=== PATIENT | female | born 1990 | race Caucasian/White ===

== ENCOUNTER → 2016-10-30 | Outpatient (CLI) | payer OTHER ==
[~2016-10-30] MED LIST: PRENTAB26 PO
== END | disposition home or self-care (01) ==
LOC: C.PATHSPEC 17:09
PROVIDERS: ATTEND Plastic Surgery
DX: D23.5 Other benign neoplasm of skin of trunk (principal)

== ENCOUNTER → 2017-02-09 | Outpatient (CLI) | payer OTHER, BC ==
[2017-02-09 13:32] LABS: HEMATOCRIT 36.1 % (37-47)
[2017-02-09 13:50] LABS: GTGD 50 Grams
[2017-02-09 13:59] LABS: URINE APPEARANCE CLEAR (CLEAR); URINE BILIRUBIN NEG (NEG); URINE COLOR YELLOW; URINE NITRITE NEG (NEG); URINE PH 6.5 (4.5-7.5); URINE SPECIFIC GRAVITY 1.008 (1.000-1.030); UROBILINOGEN NEG (NEG)
[2017-02-09 14:06] LABS: MANUAL MICROSCOPIC REQUIRED? NO; REVIEW REQ? NO
== END | disposition home or self-care (01) ==
LOC: C.LABPBG 08:12
PROVIDERS: ATTEND Obstetrics & Gynecology
DX: O09.03 Supervision of pregnancy with history of infertility, third trimester (principal)

== ENCOUNTER → 2017-02-18 | Outpatient (CLI) | payer OTHER, BC ==
[2017-02-18 13:06] LABS: ALT/SGPT 24 U/L (12-78); BLOOD UREA NITROGEN 10 mg/dl (7-18); BUN/CREATININE RATIO 16.4 (10-20); CARBON DIOXIDE 26 mmol/L (21-32); CHLORIDE 106 mmol/L (98-107); CHOLESTEROL 142 mg/dl (0-200); CREATININE 0.61 mg/dl (0.60-1.20); GLUCOSE,FASTING 68 mg/dl (70-99); POTASSIUM 3.7 mmol/L (3.5-5.1); SODIUM 139 mmol/L (136-145); TRIGLYCERIDES 106 mg/dl (0-150); VERY LOW DENSITY LIPOPROT CALC 21 mg/dl
[2017-02-18 13:09] LABS: ALB/GLOB RATIO 0.9 (0.9-2); ALKALINE PHOSPHATASE 92 U/L (45-117); AST/SGOT 20 U/L (15-37); HDL CHOLESTEROL 47 mg/dl; LDL CHOLESTEROL CALCULATED 74 mg/dl
[2017-02-18 13:10] LABS: CALCIUM 8.9 mg/dl (8.5-10.1)
== END | disposition home or self-care (01) ==
LOC: C.LABPBG 07:55
PROVIDERS: ATTEND Physician Assistant
DX: Z00.00 Encounter for general adult medical examination without abnormal findings (principal)

== ENCOUNTER → 2017-04-08 | Outpatient (CLI) | payer OTHER, BC | END | disposition home or self-care (01) | LOC: C.LABSPEC 17:40 | PROVIDERS: ATTEND Obstetrics & Gynecology | DX: O09.03 Supervision of pregnancy with history of infertility, third trimester (principal); Z3A.00 Weeks of gestation of pregnancy not specified ==

== ENCOUNTER 2017-05-07 22:46 | Inpatient (IN) | payer BC, OTHER ==
[~2017-05-07] VITALS: Ht 170.2 cm; Wt 83.9 kg
[2017-05-07] MEDS ORDERED: LACTATED RINGER'S 1000ML 1,000 ML IV PRN (23:05)
[2017-05-07 23:26] LABS: HEMATOCRIT 36.2 % (37-47); MEAN CELL VOLUME 92.1 fL (80-100); MEAN CORPUSCULAR HEMOGLOBIN 32.8 pg (25-34); MEAN CORPUSCULAR HGB CONC 35.6 g/dl (32-36); MEAN PLATELET VOLUME 10.8 fL (7.4-10.4); PLATELET COUNT 163 K/uL (130-400); RED BLOOD COUNT 3.93 M/uL (4.2-5.4); WHITE BLOOD COUNT 14.98 K/uL (4.8-10.8)
[2017-05-07] MEDS ORDERED: PRENTAB26 PO (23:50)
[2017-05-07 23:51] VITALS: Ht 170.2 cm; Wt 83.9 kg
[2017-05-08] MEDS ORDERED: BUPIVACAINE 0.25% 30 ML VIAL ONE (00:23)
[2017-05-08] MEDS ORDERED: FENTANYL 2MCG/ML ROPIV 1.25MG/ML 100ML BAG EPI ONE (00:23)
[2017-05-08] MEDS ORDERED: EpHEDrine SULFATE INJ 50 MG/ML AMP ONE (00:23)
[2017-05-08] MEDS ORDERED: FENTANYL CITRATE INJ 50 MCG/1 ML 2 ML VIAL ONE (00:24)
[2017-05-08] MEDS: LACTATED RINGER'S 1000ML 1,000 ML IV SCH ×4 (00:36→19:05)
[2017-05-08] MEDS ORDERED: NALOXONE HCL INJ 1 MG in SODIUM CHLORIDE 0.9% 1000ML 1,000 ML IV PRN (01:22)
[2017-05-08] MEDS ORDERED: LACTATED RINGER'S 1000ML 500 ML IV PRN ×2 (01:22→10:41)
[2017-05-08] MEDS ORDERED: NALBUPHINE HCL INJ 10 MG/ML AMP IV PRN (01:30)
[2017-05-08] MEDS ORDERED: NALOXONE HCL INJ 0.4 MG/1 ML VIAL/CARP IV PRN (01:30)
[2017-05-08] MEDS ORDERED: PROMETHAZINE HCL INJ 6.25 MG in SODIUM CHLORIDE 0.9% 50ML 50 ML IV PRN (01:30)
[2017-05-08] MEDS ORDERED: ONDANSETRON INJ 2 MG/ML 2 ML VIAL IV PRN (01:30)
[2017-05-08] MEDS ORDERED: DiphenhydrAMINE HCL 50 MG/ML VIAL IV PRN (01:30)
[2017-05-08] MEDS ORDERED: EpHEDrine SULFATE INJ 50 MG/ML AMP IV PRN (01:30)
[2017-05-08] MEDS: FENTANYL 2MCG/ML ROPIV 1.25MG/ML 100ML BAG EPI PRN ×4 (06:50→16:06)
[2017-05-08] MEDS ORDERED: OXYTOCIN 30 UNITS/500ML NSS IV PRN ×2 (10:45→20:00)
[2017-05-08] MEDS ORDERED: LACTATED RINGER'S 1000ML 1,000 ML IV SCH (19:51)
[2017-05-08] MEDS ORDERED: BENZOCAINE 20% AER SPR 82.5 GM CAN EXT PRN (20:00)
[2017-05-08] MEDS ORDERED: SUPERCREAM 0.870 % 15GM JAR EXT PRN (20:00)
[2017-05-08] MEDS ORDERED: DIPHTHERIA/TETANUS/PERTUSSIS 0.5 ML SYR/VIAL IM. ONE (20:00)
[2017-05-08] MEDS ORDERED: LANOLIN OINT EXT PRN ×2 (20:00)
[2017-05-08] MEDS ORDERED: HYDROCORTISONE ACETATE 25 MG SUPP PR PRN (20:00)
[2017-05-08] MEDS ORDERED: ACETAMINOPHEN 325 MG TAB PO PRN (20:00)
[2017-05-08] MEDS ORDERED: OXYCODONE/ACETAMINOPHEN 5-325 TAB PO PRN (20:00)
--- NOTE | 2017-05-08 21:18 | Anesthesia Procedure Note ---
Anesthesia Epidural Removal Nt Date & Time May 08, 2017 at 21:18 Vital Signs Pain Intensity: 0.0 Notes Mental Status: alert / awake / arousable, participated in evaluation Nausea / Vomiting: adequately controlled Pain: adequately controlled Airway Patency, RR, SpO2: stable & adequate BP & HR: stable & adequate Hydration State: stable & adequate Neuraxial Anesthesia: was administered Anesthetic Complications: no major complications apparent, pt satisfied with anesthetic care Epidural: removed without complications, with tip intact
[2017-05-08] MEDS: IBUPROFEN 600 MG TAB PO PRN (21:47)
[2017-05-08 23:15] VITALS: BP 126/71; PULSE 68; TEMP 36.7; O2SAT 97
[2017-05-09 03:55] VITALS: BP 119/73; PULSE 76; TEMP 36.5; O2SAT 97
[2017-05-09] MEDS: IBUPROFEN 600 MG TAB PO PRN ×4 (07:31→21:39)
[2017-05-09 07:35] VITALS: BP 136/75; PULSE 69; TEMP 36.4; O2SAT 97
[2017-05-09 07:53] LABS: HEMATOCRIT 32.8 % (37-47)
--- NOTE | 2017-05-09 08:50 | DELIVERY SUMMARY ---
DATE OF OPERATION: 05/08/2017 VAGINAL DELIVERY NOTE PREOPERATIVE DIAGNOSES: 1. Duarte intrauterine at 40 weeks and 02/14. 2. Spontaneous onset of labor. 3. Group B strep negative. POSTOPERATIVE DIAGNOSES: Same. PROCEDURE: Spontaneous vaginal delivery. SURGEON: Dr. Caty Hook. DEPUTY COURT CLERK: None. ESTIMATED BLOOD LOSS: 500 mL. COMPLICATIONS: None. DISPOSITION: Stable in labor and delivery. DESCRIPTION: [place] is a , who was admitted by my partner, Dr. Mckeon in active labor. She was 5 cm at the time I assumed her care on the morning of May 08. She was not making good change at that point and therefore augmented with Pitocin throughout the day. She ultimately did reach complete dilation with energy to push and was ____ second stage of labor. I was called for delivery and prepped and gowned. The patient was then ____ additional pushes to bring the head to and ultimately to delivery. There was no difficulty with delivery of the shoulders and remainder of the infant followed quickly. The infant was placed on the maternal abdomen, where the cord was doubly clamped and cut by the father of the baby. Of note, significant meconium staining was noted and the was taken to the warmer for suction. However, the was vigorous immediately upon delivery. The placenta was delivered spontaneously. It was noted to be intact with a 3-vessel cord. The cervix, vagina, and perineum were carefully examined and there were on lacerations requiring repair. The patient fundus was immediately firm after delivery; however, approximately 5 minutes later, good gush of red bleeding was noted. Bimanual massage was performed, which did slow the bleeding significantly and the patient's Pitocin rate was increased to ____. The fundus is now firm, lochia is minimal and the mother and are in stable condition having tolerated delivery well. I attest to the content of the Intraoperative Record and any orders documented therein. Any exception s are noted below.
[2017-05-09] MEDS: DOCUSATE SODIUM 100 MG CAP PO SCH ×2 (08:53→20:04)
[2017-05-09] MEDS: PRENATAL VITAMIN TAB PO SCH (08:53)
--- NOTE | 2017-05-09 09:35 | Progress Note ---
Subjective May 09, 2017. Subjective conversation w/ patient, physical exam Ambulation: ambulating normally Voiding: no voiding problems Passing Gas: Yes Diet Tolerance: Regular Diet Lochia: Moderate Feeding Type: Breast Feeding Review of Systems Constitutional: No fever Respiratory: No cough Cardiac: No chest pain Abdomen: No nausea, No vomiting Objective Vital Signs Date Time Temp Pulse Resp B/P (MAP) Pulse Ox O2 Delivery O2 Flow Rate FiO2 05/09/17 07:35 97 Room Air 05/09/17 07:35 36.4 69 18 136/75 (95) 97 Room Air 05/09/17 03:55 36.5 76 20 119/73 (88) 97 Room Air 05/08/17 23:15 36.7 68 20 126/71 (89) 97 Room Air 05/08/17 23:15 97 Room Air Physical Exam General Appearance: WELL-APPEARING, NO APPARENT DISTRESS Respiratory/Chest: no respiratory distress, no accessory muscle use Cardiovascular: no edema Abdomen: non tender, soft Fundus: Firm Extremities: no pedal edema, no calf tenderness Laboratory Results Last 24 Hours Test 05/09/17 07:23 Hemoglobin 11.2 g/dL Hematocrit 32.8 % Assessment and Plan Post- Day#: 1
[2017-05-09 12:20] VITALS: BP 137/80; PULSE 81; TEMP 36.5; O2SAT 97
[2017-05-09 16:50] VITALS: BP 124/78; PULSE 69; TEMP 36.5; O2SAT 99
[2017-05-09 20:20] VITALS: BP 130/78; PULSE 64; TEMP 36.5; O2SAT 98
[2017-05-10 00:20] VITALS: BP 120/70; PULSE 56; TEMP 36.4; O2SAT 98
--- NOTE | 2017-05-10 06:56 | OB/GYN Progress Note ---
[employer] Progress Note Date of Service May 10, 2017. Subjective conversation w/ patient, conversation w/ family, physical exam, chart review, lab review, review of inpatient medication list Ambulation: ambulating normally Voiding: no voiding problems Passing Gas: Yes Diet Tolerance: Regular Diet Lochia: Small Feeding Type: Breast Feeding Pain: Mild cramping pain with breast feeding and soreness conrtrolled with motrin Review of Systems Constitutional: No fever, No chills Respiratory: No shortness of breath Cardiac: No chest pain Breast: No problem reported Abdomen: No nausea, No vomiting Female : No dysuria Objective Vital Signs Date Time Temp Pulse Resp B/P (MAP) Pulse Ox O2 Delivery O2 Flow Rate FiO2 05/10/17 00:20 36.4 56 20 120/70 (87) 98 Room Air 05/10/17 00:20 98 Room Air 05/09/17 20:20 36.5 64 20 130/78 (95) 98 Room Air 05/09/17 16:50 36.5 69 18 124/78 (93) 99 Room Air 05/09/17 16:50 99 Room Air 05/09/17 12:20 36.5 81 18 137/80 (99) 97 Room Air 05/09/17 07:35 97 Room Air 05/09/17 07:35 36.4 69 18 136/75 (95) 97 Room Air Date Time Temp Pulse Resp B/P (MAP) Pulse Ox O2 Delivery O2 Flow Rate FiO2 05/10/17 00:20 36.4 56 20 120/70 (87) 98 Room Air 05/10/17 00:20 98 Room Air 05/09/17 20:20 36.5 64 20 130/78 (95) 98 Room Air 05/09/17 16:50 36.5 69 18 124/78 (93) 99 Room Air 05/09/17 16:50 99 Room Air 05/09/17 12:20 36.5 81 18 137/80 (99) 97 Room Air 05/09/17 07:35 97 Room Air 05/09/17 07:35 36.4 69 18 136/75 (95) 97 Room Air Physical Exam General Appearance: WELL-APPEARING Respiratory/Chest: lungs clear, normal breath sounds, no respiratory distress Cardiovascular: regular rate, rhythm Extremities: non-tender, + swelling (mild pedal edema) Laboratory Results Last 24 Hours Test 05/09/17 07:23 Hemoglobin 11.2 g/dL Hematocrit 32.8 % Medications Current Inpatient Medications Medications (Trade) Dose Ordered Sig/Sylvie Route Start Time Stop Time Status Last Admin Dose Admin Oxytocin (Pitocin IV) 30 units UD PRN IV 05/08/17 10:45 06/07/17 10:44 05/08/17 11:07 30 UNITS Lactated Ringer's 500 ml @ 999 mls/hr Q31M PRN IV 05/08/17 10:41 06/07/17 10:40 Lactated Ringer's 1,000 ml @ 125 mls/hr Q8H IV 05/08/17 19:51 06/07/17 19:50 Oxytocin (Pitocin IV) 30 units UD PRN IV 05/08/17 20:00 06/07/17 19:59 Benzocaine (Dermoplast Aero Spr) 1 appln PRN PRN EXT 05/08/17 20:00 06/07/17 19:59 Cocaine HCl (Supercream 0.870% Cr) BID PRN EXT 05/08/17 20:00 05/22/17 19:59 05/09/17 00:46 15 GM Hydrocortisone Acetate (Anusol Hc Supp) 25 mg BID PRN AL 05/08/17 20:00 06/07/17 19:59 Lanolin (Lanolin Oint) PRN PRN EXT 05/08/17 20:00 06/07/17 19:59 Prenat Multivit/ [facility]/Iron/Folic Ac ( Vitamin Tab) 1 tab DAILY PO 05/09/17 08:00 06/08/17 07:59 05/09/17 08:53 1 TAB Ibuprofen (Motrin Tab) 600 mg Q4H PRN PO 05/08/17 20:00 06/07/17 19:59 05/09/17 21:39 600 MG Acetaminophen (Tylenol Tab) 650 mg Q6H PRN PO 05/08/17 20:00 06/07/17 19:59 Oxycodone/ Acetaminophen (Percocet 5-325mg Tab) 1 tab Q4H PRN PO 05/08/17 20:00 05/22/17 19:59 Docusate Sodium (coLACE CAP) 100 mg BID PO 05/08/17 20:00 06/07/17 19:59 7/30/17 20:04 100 MG Assessment and Plan Post- Day Number: 3 Continue Routine Care: 27y/oF s/p NVD, now PPD #2. - Blood type O positive. GBS negative. Rubella immune. - Vital signs reviewed and stable. - Pain controlled with motrin. - Mild leg swelling, No tenderness on calf palpation. Ambulating well - Breast feeding w/ot concerns - Hemoglobin post-delivery 11.2. Mild bleeding. - Pt ready for discharge Resident Physician Supervision Note: I interviewed and examined the patient. Discussed with Dr. Block and agree with findings and plan as documented in the note. Any exceptions or clarifications are listed here: [None] Documented By: Caty Hook Resident Involvement: Resident Care Provided Care Provided: OB Delivery
--- NOTE | 2017-05-10 07:01 | Discharge Instructions ---
Discharge Instructions Date of Service May 10, 2017. Admission Reason for Admission: Spontaneous Onset Of Labor Discharge Discharge Diagnosis / Problem: Vaginal delivery Discharge Goals Goal(s): Routine recovery after delivery Medications Continue Dispensed Medications: supercream, dermaplast, tucks, lansinoh Activity Recommendations Activity Limitations: per Instructions/Follow-up section . Instructions / Follow-Up Instructions / Follow-Up ACTIVITY RECOMMENDATIONS: * Gradual return to full activity over the next 2-3 weeks. * No lifting - nothing heavier than baby over the next 2-3 weeks. * Do not engage in vigorous exercise, sexual activity or sports until cleared by your physician. * Do not drive or operate any motorized equipment until cleared by your physician. * You may shower/bathe daily. MEDICATIONS: For discomfort or pain, you may use Acetaminophen (Tylenol), Ibuprofen (Advil), or Naproxen (Aleve) following the package directions. For constipation you may use Colace following the package directions. BREAST CARE: If you are not breast feeding: * Wear a supportive bra 24 hours a day for one to two weeks. * Avoid stimulating your breasts and nipples as much as possible during the first few weeks after delivery. * When taking a shower, have the warm water hit your back, not breasts. * When your breasts feel full, apply ice packs. Usually three to four times a day helps ease the discomfort. * Take a mild pain medication (Tylenol / Motrin) when you are uncomfortable. If breast feeding: * Use breast milk to lubricate nipples. Lansinoh cream may be used for sore nipples. You do not need to remove cream prior to breast feeding. If using a different brand of cream, check the label for directions regarding removal of cream prior to nursing. * Wear a supportive bra. * If having problems with breasts or breast feeding, call a independent crop consultant or your health care provider. EPISIOTOMY CARE: After delivery, if you have an episiotomy (stitches), the following steps will ease discomfort and aid healing. * For the first 24 hours after delivery, place ice packs next to your episiotomy to help reduce swelling. * After the first 24 hour-period, sitz baths, either portable or in the tub, are suggested. A shower with a shower arm sprayed over the episiotomy may be comforting. * Shivani care should be done after each voiding and bowel movement. Squirt warm water from a plastic bottle over the perineum (region of the body between the anus and urinary opening) and pat dry. * Use Dermoplast to ease discomfort. Shake container. Porter directly over the episiotomy. Place a Tucks on a clean sanitary pad next to your episiotomy. SPECIAL CARE INSTRUCTIONS: When you are discharged from the hospital, it is important for you to follow the instructions listed below: * During the first week at home, you should be able to care for yourself and your baby. In addition, the usual light household activities are encouraged. * Limit your activities to the way you feel. Do not try to clean the house or move furniture. Be sensible. * If you actively engage in sports and have done so up until the time of your delivery, you may resume these activities as soon as you feel able. This may take up to one month or even longer. Use good judgment. * Continue to take your vitamins for at least six weeks after the of your baby. * Your diet need not be limited unless you were on a special diet before your delivery. Breast-feeding mothers need around 2500 calories per day and at least 64-80 ounces of fluid per day (8 to 10 glasses). * You should eat foods from the four major food groups. Crash diets or fad diets are to be avoided. Eating lean meats, fresh fruits and vegetables, low-fat dairy products, high fiber foods and a regular exercise program, will help you get back to your pre- weight without putting your health at risk. * Constipation is sometimes a problem after delivery. Take a mild laxative as needed. If breast feeding, Milk of Magnesia is acceptable to use. You may use a suppository or Fleets enema if no episiotomy. * A daily shower or tub bath is suggested. Be sure to thoroughly and gently dry the perineum. * A bloody vaginal discharge will usually continue until around four weeks post . A small amount of bleeding may continue for as long as six weeks. Vaginal discharge changes from the bright red bleeding after delivery to pink then brownish and finally yellowish-pink before becoming white and disappearing. * Bleeding may increase with activity. Your first period may come in 4-8 weeks. If you are breast feeding, your period may be delayed even longer. * [place] (sex) can begin whenever both you and your partner feel comfortable and do not have any form of genital infection. It is recommended that you wait at least six weeks for internal and external healing to occur. If you have questions, please talk to your health care practitioner. A condom should be used to prevent infection and . * Foreplay, gentle intercourse and lubrication is very important the first several times to prevent pain. A water-based lubricant such as K-Y jelly or Astroglide may be used. * If you have RH negative blood and your baby is RH positive, you will receive RHOGAM by injection prior to discharge. The nurse will give you a card to keep with you that has the date and place that you received RHOGAM after delivery. * During your care, you had a Rubella screen done to check for the presence of rubella antibodies in your blood. If your test was negative, you will receive a Rubella vaccine prior to discharge. This vaccine may cause a fever, soreness at the injection site and flu-like symptoms. If these symptoms persist, notify your health care practitioner. is not advised for one month after a Rubella vaccine. * Verbalizes understanding of car seat law as reviewed with patient nursing. * Car Seat hand-out given and reviewed with patient by nursing. * Shaken baby information reviewed with patient by nursing. Call you doctor if: * Heavy bleeding (saturating several pads an hour) or passing clots the size of your fist. * A fever >101 degrees F (38.3 degrees C) on two occasions four hours apart and /or chills. * Unusual pain in the pelvic or vaginal areas. * "Baby Blues" lasting longer than two weeks. If you have any questions or concerns, call your health care practitioner at . FOLLOW UP VISIT: * Please call the office at to schedule a 6 week examination. It is important you keep this appointment. It is important for you to make arrangements for either yearly or twice yearly check-ups thereafter. Current Hospital Diet Patient's current hospital diet: Regular OB Diet Discharge Diet Recommended Diet: Regular Diet Pending Studies Studies pending at discharge: no Laboratory Results Lipid Panel Test 02/18/17 07:59 Range/Units Triglycerides Level 106 0-150 mg/dl Cholesterol Level 142 0-200 mg/dl HDL Cholesterol 47 mg/dl Cholesterol/HDL Ratio 3.0 LDL Cholesterol, Calculated 74 mg/dl Medical Emergencies . Who to Call and When: Medical Emergencies: If at any time you feel your situation is an emergency, please call 911 immediately. . Non-Emergent Contact Non-Emergency issues call your: Primary Care Provider . . "Provider Documentation" section prepared by Caty oHok. . VTE Core Measure Inpt VTE Proph given/why not?: Treatment not indicated
[2017-05-10 07:55] VITALS: BP 126/79; PULSE 61; TEMP 36.5; O2SAT 99
[2017-05-10] MEDS: PRENATAL VITAMIN TAB PO SCH (09:06)
[2017-05-10] MEDS: DOCUSATE SODIUM 100 MG CAP PO SCH (09:06)
[2017-05-10 13:20] VITALS: BP_DIAS 79; PULSE 61; TEMP 36.5
== END 2017-05-10 13:20 | disposition home or self-care (01) | DRG 775 ==
LOC: C.OPB 22:46 → C.LD 22:47 → C.OPB 23:06 → C.LD 23:06 → C.OBG 05-08 22:52
PROVIDERS: ADMIT Obstetrics & Gynecology; ATTEND Obstetrics & Gynecology
PROC: 10E0XZZ Delivery of Products of Conception, External Approach (ICD-10-PCS; principal; 2017-05-08)
DX: O63.1 Prolonged second stage (of labor) (principal); O48.0 Post-term pregnancy; Z3A.40 40 weeks gestation of pregnancy; Z37.0 Single live birth

== ENCOUNTER → 2017-07-26 | Outpatient (CLI) | payer OTHER ==
[2017-07-27 10:36] LABS: PREG INTERNAL NEGATIVE QC NEG CLEAR BACKGROUND; PREG INTERNAL POSITIVE QC POS CONTROL LINE
== END | disposition home or self-care (01) ==
LOC: C.LABPBG 12:51
PROVIDERS: ATTEND Obstetrics & Gynecology
DX: Z30.430 Encounter for insertion of intrauterine contraceptive device (principal)

== ENCOUNTER → 2017-12-02 | Outpatient (CLI) | payer BC, OTHER | END | disposition home or self-care (01) | LOC: C.LABPBG 08:24 | PROVIDERS: ATTEND Physician Assistant | DX: Z00.00 Encounter for general adult medical examination without abnormal findings (principal) ==

== ENCOUNTER 2020-02-19 07:19 | Inpatient (IN) ==
[2020-02-19] MEDS ORDERED: OXYTOCIN 30 UNITS/500 ML BAG IV PRN ×3 (07:51→16:13)
[2020-02-19 08:12] LABS: Hematocrit (blood only) 37.6 % (37-47); Hemoglobin 12.9 g/dL (12.0-16.0); Mean Corpuscular Hemoglobin 31.5 pg (25-34); Mean Corpuscular Volume 91.9 fL (80-100); Mean Platelet Volume 11.2 fL (7.4-10.4); Platelet Count 198 K/uL (130-400); RDW Coefficient of Variation 13.3 % (11.5-14.5); RDW Standard Deviation 44.2 fL (36.4-46.3); Red Blood Count 4.09 M/uL (4.2-5.4); White Blood Count 10.57 K/uL (4.8-10.8)
[2020-02-19 08:42] LABS: Mean Corpuscular Hgb Conc 34.3 g/dL (32-36)
--- NOTE | 2020-02-19 09:41 | History & Physical Report ---
Date of Service February 19, 2020 Assessment & Plan (1) Encounter for induction of labor: [place] is a 30 yo at 41w 2d here for planned, post-dates IOL. - admit to L&D - will start IV fluids and pitocin drip - pain plan: epidural vs. Stadol; will continue to consider options as labor progresses - anticipate History of Present Illness Primary Care Provider: Diane Yoder DO [place] is a 30 yo at 41w 2d ( dated via LPM), here for planned, post-dates IOL. No complications with this . Only medications are colace and PNV. She has been attending OB appointments. Not feeling contractions. Feeling movement. No vaginal bleeding. No fluid loss. Labs Blood type: O+ Antibody Screen: neg H.9 Hct: 37.6 Plt: 198 Rubella: immune VDRL/RPR: neg Gonorrhea: non reactive Chlamydia: non reactive GBS: neg HIV: neg HbsAq: neg Glucose Tolerance x2: normal Allergies Allergy/AdvReac Type Severity Reaction Status Date / Time codeine AdvReac Severe VOMITING Verified 02/19/20 08:15 Home Medications Home Medications Medication Instructions Recorded Confirmed Type docusate sodium 100 mg capsule 100 mg PO DAILY PRN #30 cap 11/10/19 02/19/20 Rx vit-iron fum-folic ac 1 tab PO DAILY 02/19/20 02/19/20 History [ Vitamin] Patient History Medical History Anxiety Heart murmur Varicella vaccination Surgical History History of colposcopy with cervical biopsy S/P tonsillectomy S/P wisdom tooth extraction Family History Grandfather (Paternal) Heart disease Thyroid disease Mother Hypertension Central hypothyroidism Father Hypertension Grandmother (Maternal) Breast cancer Denies family history of Ovarian cancer Prostate cancer Lung cancer Colorectal cancer Social History Preferred Language: Frisian Communication Ability: Effective Visual Impairment: No Limitations Hearing Ability: Normal [employer]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 Beliefs That Will Affect Care: None marital status: marital status details: Ozzy Gonzales ([phone] Current Living Situation: Family Current Living Situation Comment: spouse, son and step son current occupational status: previously employed current occupation: homemaker Other Information That Helps Us Care for You: No Feels Safe at Home: Yes Safety Concerns: Feels Safe At This Time Smoking Status: Never smoker Hx Alcohol Use: Yes Alcohol type: wine Alcohol Intake Frequency: Rarely Hx Substance Use: No Childhood Exposure to Second-Hand Smoke: No caffeine: Yes (coffee) Dental Care, Regularly: Yes Physical Activity Frequency: 3-4 Times per Week Physical Activity Frequency Comment: walking Seatbelt Use: always Sunscreen Use: Yes Review of Systems no fever, no chills and no sweats no worsening vision no cough and no dyspnea no chest pain, no palpitations and no calf pain no nausea, no vomiting, no constipation and no diarrhea/loose stools no dysuria and no urinary frequency Physical Exam Constitutional: WD/WN, vitals as above Eyes: + anicteric sclerae Neck: normal visual inspection Respiratory: normal respiratory effort, lungs clear to auscultation does not use accessory muscles Auscultation: no crackles, no rales, no wheezes and no pleural rub Cardiovascular: Rate/Rhythm: regular rate and regular rhythm Heart Sounds: normal S1 and normal S2; no gallop and no cardiac rub Gastrointestinal (Abdomen): Gravid. Uterus at term; + heart tones; vertex position. EFW 7-8 lbs Neurologic: awake; no focal motor deficits Psychiatric: A+Ox3, euthymic affect Genitourinary: OB Exam Monitor Tracing: + external FHT monitor used Cervical Exam: 2 cm/ 60% effacement/-2 station, soft and posterior Results & Data Vital Signs (Past 12 Hours) Vital Signs Temp Pulse Resp BP 02/19/20 08:00 36.8 C 20 02/19/20 07:54 81 145/85 H Monitoring External Monitor Baseline HR:120 bpm Variability: moderate Accelerations: 2 accels in 20 min Decelerations: none Tocodynamometer Contractions: occurring irregularly Supervising Physician Co-Signing Physician Notes Patient evaluated and agree with the above findings and plan Resident Activity Tracking Resident Involvement: Resident Care Provided Care Provided: OB Delivery
[2020-02-19] MEDS: LACTATED RINGER'S 1,000 ML IV PRN ×2 (09:48→12:20)
[2020-02-19] MEDS ORDERED: ePHEDrine sulfate 50 MG/ML AMP ONE (11:39)
[2020-02-19] MEDS ORDERED: BUPIVACAINE 0.25% 30 ML VIAL ONE (11:39)
[2020-02-19] MEDS ORDERED: fentaNYL citrate 100 MCG/2 ML VIAL ONE (11:40)
[2020-02-19] MEDS ORDERED: fentaNYL 2MCG/ML ROPIV 1.25MG/ML 100 ML BAG EPI ONE (11:40)
--- NOTE | 2020-02-19 12:08 | Anesthesiology Consultation ---
Date of Service February 19, 2020 Assessment & Plan Chart Review Chart Review: Patient NOT seen in Pre Admission Testing and Acceptable Risk for Labor Epidural Consults Requested none ASA ASA2 Proposed Anesthesia Anesthesia Type: Labor Epidural and CSE Risk / Benefits Reviewed With: PT / POA / Parent / Guardian, Accepts Plan and Informed Consent Obtained History Height/Weight Height: 5 ft 8 in Weight: 87.997 kg Allergies Allergy/AdvReac Type Severity Reaction Status Date / Time codeine AdvReac Severe VOMITING Verified 02/19/20 08:15 Medications Home Medications Medication Instructions Recorded Confirmed Last Taken docusate sodium 100 mg capsule 100 mg PO DAILY PRN #30 cap 11/10/19 02/19/20 02/18/20 08:00 vit-iron fum-folic ac 1 tab PO DAILY 02/19/20 02/19/20 02/18/20 08:00 [ Vitamin] Active Medications Generic Name Dose Route Start Last Admin Trade Name Freq PRN Reason Stop Dose Admin Lactated Ringer's 1,000 mls @ 125 mls/hr 02/19/20 07:51 02/19/20 09:48 Lr IV 02/21/20 07:50 125 mls/hr .Q8H PRN Administration L&D Protocol Protocol Oxytocin 30 units in 500 mls @ 4 mls/hr 02/19/20 07:53 02/19/20 10:20 Pitocin IV 02/21/20 07:52 0.24 units/hr .Q24H PRN 4 mls/hr Labor Induction/Augmentation Titration Protocol 0.24 UNITS/HR NPO Date Last Intake of Fluids: 02/19/20 Time Last Intake of Fluids: 11:30 Date Last Intake of Solids: 02/19/20 Time Last Intake of Solids: 06:30 Past Medical History Medical History Anxiety Heart murmur Varicella vaccination Exercise / Class Metabolic Activity II 4-5 Yardwork/Stairs/Walk up hill Past Family History Family History Grandfather (Paternal) Heart disease Thyroid disease Mother Hypertension Central hypothyroidism Father Hypertension Grandmother (Maternal) Breast cancer Denies family history of Ovarian cancer Prostate cancer Lung cancer Colorectal cancer Past Surgical History Surgical History History of colposcopy with cervical biopsy S/P tonsillectomy S/P wisdom tooth extraction Past Anesthesia History No Hx of Anesthesia Complications and No Family Hx of Anesthesia Complications History of PONV No Hx of PONV and No Hx of Motion Sickness Social History Smoking Status: Never smoker Hx Alcohol Use: Yes Alcohol type: wine Hx Substance Use: No Review of Systems no chest pain or sob Physical Exam Vital Signs Last Vital Signs Temp 36.8 C 02/19/20 08:00 Pulse 78 02/19/20 12:06 Resp 20 02/19/20 08:00 BP 136/77 02/19/20 12:02 Pulse Ox 99 02/19/20 12:06 ENMT Mouth: no TMJ abnormality Thyromental Distance: > or= 3.5 Finger Breadths Mallampati Class: II Neck normal visual inspection Respiratory normal respiratory effort Auscultation: lungs clear to auscultation bilaterally Cardiovascular Rate/Rhythm: regular rate and regular rhythm Musculoskeletal Spine: normal cervical ROM Neurologic moves all extremities Psychiatric Orientation: alert and oriented x 3 Testing Laboratory Results 02/19/20 08:01
--- NOTE | 2020-02-19 12:45 | Labor Progress Brief Note ---
Date of Service February 19, 2020 Subjective Reason For Note: Routine Evaluation Assessment & Plan (1) Encounter for induction of labor: Cat 1 Progressing well, AROM clr Epidural in place (2) Encounter for supervision of normal in multigravida: Physical Exam Genitourinary: OB Exam Abdomen: + vertex Manual OB Exam: + cervical dilation 8 cm, + cervical effacement 100%, + station 0 and + amniotic fluid clear OB Exam Monitor Tracing: + external FHT monitor used, + external uterine monitor used, + category I and + normal FHT variability; no early decelerations present, no late decelerations present and no variable decelerations Results & Data Vital Signs (Past 12 Hours) Vital Signs Temp Pulse Resp BP Pulse Ox 02/19/20 12:41 71 99 02/19/20 12:40 67 143/71 H 02/19/20 12:36 79 97 02/19/20 12:34 69 125/59 L 02/19/20 12:32 63 130/61 02/19/20 12:31 74 96 02/19/20 12:30 60 130/59 L 02/19/20 12:28 73 131/61 02/19/20 12:27 64 124/58 L 02/19/20 12:26 68 98 02/19/20 12:25 62 124/70 02/19/20 12:23 66 122/56 L 02/19/20 12:22 91 H 94 02/19/20 12:21 88 95 02/19/20 12:20 73 120/54 L 02/19/20 12:17 92 H 81 L 02/19/20 12:16 79 98 02/19/20 12:11 76 99 02/19/20 12:06 78 99 02/19/20 12:02 77 136/77 02/19/20 12:01 69 98 02/19/20 11:03 78 139/88 02/19/20 10:03 62 130/79 02/19/20 08:00 36.8 C 20 02/19/20 07:54 81 145/85 H Coding Level of Care Code None Diagnoses Encounter for induction of labor Z34.90 Encounter for supervision of normal in multigravida Z34.80
--- NOTE | 2020-02-19 15:09 | Delivery Summary ---
DATE OF OPERATION: 02/19/2020 PROCEDURE: Normal spontaneous vaginal delivery. SURGEON: Ray Resendzi MD. PREOPERATIVE DIAGNOSIS: Single intrauterine at 41 weeks 2 days gestational age. POSTOPERATIVE DIAGNOSIS: Single intrauterine at 41 weeks 2 days gestational age, status post delivery. ESTIMATED BLOOD LOSS: 150 mL. DRAINS: None. FLUIDS: Continuous lactated ringer. URINE OUTPUT: Not measured. COMPLICATIONS: None. FINDINGS: Viable male infant with weight pending and Apgars of 8 and 9 at 1 and 5 minutes respectively. INDICATIONS: The patient is a 30-year-old G2, P1, admitted at 41 weeks 2 days gestational age for postdates induction of labor. At initial evaluation, the patient was found to be 2 cm dilated, 80% effaced, -2 station. Her induction course started with oxytocin per regular protocol. She underwent artificial rupture of membranes for clear fluid. The patient progressed rapidly in labor to complete-complete +2 station, at which time she felt the urge to push. The patient pushed for approximately 2 contractions to achieve delivery. DESCRIPTION OF PROCEDURE: The patient progressed to 10 cm dilated, 100% effaced, +2 station, pushed over intact perineum with epidural anesthesia and delivered a viable male infant with weight and Apgars as noted above. Head of the delivered in ROGELIO position, rest into right transverse. No nuchal cord was noted. Body and shoulders quickly followed. was noted to be vigorous upon delivery and a 1-minute delayed cord clamping was initiated. Cord was then double clamped and cut. remained on maternal abdomen. Cord blood was then obtained. Attention was then turned to delivery of the placenta, which was delivered intact, 3-vessel cord with gentle cord traction. On inspection of the perineum, vagina and cervix, there was noted to be no lacerations. Sponge, needle and instrument counts were correct at the completion of the case. Both mother and were stable in the immediate post delivery period. I attest to the content of the Intraoperative Record and any orders documented therein. Any exception s are noted below.
--- NOTE | 2020-02-19 16:09 | Anesthesia Procedure Note ---
Date of Service February 19, 2020 Anesthesia Post Epidural Note Vital Signs Vital Signs: Temp Pulse Resp BP Pulse Ox 36.8 C 63 20 135/62 90 02/19/20 11:57 02/19/20 15:59 02/19/20 15:30 02/19/20 15:59 02/19/20 14:02 Notes Mental Status: alert / awake / arousable and participated in evaluation Nausea / Vomiting: adequately controlled Pain: adequately controlled Airway Patency, RR, SpO2: stable & adequate BP & HR: stable & adequate Hydration State: stable & adequate Neuraxial Anesthesia: was administered and sensory block is resolving Anesthetic Complications: no major complications apparent and Pt Satisfied with anesthetic care Epidural: Removed without complications and With tip intact
[2020-02-19] MEDS ORDERED: DOCUSATE SODIUM 100 MG CAP PO PRN (16:13)
[2020-02-19] MEDS ORDERED: BENZOCAINE 20% AER SPR 82.5 GM CAN EXT PRN (16:13)
[2020-02-19] MEDS ORDERED: SUPERCREAM 0.870% 15 GM JAR EXT PRN (16:13)
[2020-02-19] MEDS ORDERED: HYDROCORTISONE ACETATE 25 MG SUPP PR PRN (16:13)
[2020-02-19] MEDS ORDERED: bisacodyL 10 MG SUPP PR PRN (16:13)
[2020-02-19] MEDS ORDERED: ACETAMINOPHEN 325 MG TAB PO PRN (16:13)
[2020-02-19] MEDS ORDERED: DIPHTHERIA/TETANUS/PERTUSSIS 0.5 ML SYR/VIAL IM ONE (16:13)
[2020-02-19] MEDS: IBUPROFEN 600 MG TAB PO PRN ×2 (18:00→22:19)
[2020-02-19] MEDS: DOCUSATE SODIUM 100 MG CAP PO SCH (20:06)
[2020-02-20] MEDS: IBUPROFEN 600 MG TAB PO PRN ×3 (04:28→13:36)
--- NOTE | 2020-02-20 06:34 | Obstetrical Progress Note ---
Date of Service February 20, 2020 Assessment & Plan (1) Status post vaginal delivery: [place] is a 30 yo on PPD 1 after - GBS -, Blood Type O+, Rubella immune -Vitals reviewed and WNL -patient is doing clinically well Continue routine post- care. - After discharge will have [address] Resendiz Admission and Anticipated Discharge Date Admission Date: February 19, 2020 Supervising Physician Co-Signing Physician Notes Patient seen and evaluated and agree with the above findings and plan. Stable for discharge pending discharge of baby Subjective Ambulation: ambulating normally Voiding: no voiding problems Passing Gas:: Yes Diet Tolerance:: regular diet Lochia:: Small Feeding Type:: bottle feeding Review of Systems Constitutional: no fever, no chills and no sweats Eyes: no worsening vision Respiratory: no cough and no dyspnea Cardiovascular: no chest pain, no palpitations, no edema and no calf pain Gastrointestinal: no nausea and no vomiting Genitourinary: no dysuria and no urinary frequency Neurologic: no headache(s) Physical Exam Constitutional: WD/WN, vitals as above no acute distress Respiratory: normal respiratory effort, lungs clear to auscultation does not use accessory muscles Auscultation: no crackles, no rales, no rhonchi, no wheezes and no pleural rub Cardiovascular: Rate/Rhythm: regular rate and regular rhythm Heart Sounds: normal S1 and normal S2; no gallop, no murmur and no cardiac rub Extremities: no calf tenderness and no pedal edema Gastrointestinal (Abdomen): Inspection/Auscultation: normal bowel sounds; abdomen not distended Percussion/Palpation: abdomen soft Genitourinary: Uterus: fundus firm, palpable 2 cm below the umbilicus Results & Data ([facility]) Vital Signs (Past 12 Hours) Vital Signs Temp Pulse Resp BP Pulse Ox 02/20/20 04:00 36.4 C L 72 18 132/89 97 02/19/20 23:25 36.6 C 53 L 18 137/77 96 02/19/20 19:19 36.7 C 58 L 18 130/79 98 Resident Activity Tracking Resident Involvement: Resident Care Provided Care Provided: OB Delivery
[2020-02-20] MEDS: DOCUSATE SODIUM 100 MG CAP PO SCH (08:40)
[2020-02-20] MEDS ORDERED: PRENATAL VITAMIN 1 TAB PO SCH (09:00)
[2020-02-20] MEDS ORDERED: bisacodyL 5 MG TABEC PO SCH (20:00)
== END 2020-02-20 16:45 | disposition home or self-care (01) | DRG 807 ==
LOC: 4S1 07:43 → 4S2 18:34

== ENCOUNTER 2021-07-11 11:26 | Observation (INO) ==
--- NOTE | 2021-07-11 13:10 | Obstetrical Progress Note ---
Date of Service July 11, 2021 Assessment & Plan (1) Gastroschisis of fetus in an , antepartum: Plan: Will monitor fetus on L&D, reassuring that had BPP 8/8 and good FM Subjective 31 y/o at 32 4/7 wga w/ RAI 09/01 presents from office due to variables on NST, subsequent BPP 8/8. Due to variables in the setting of Fetus with known gastroschisis with plan to deliver at [place], presented for further monitoring on L&D. +FM; denies regular ctx, LOF, VB PNI: Gastroschisis Physical Exam Genitourinary: OB Exam Monitor Tracing: + external FHT monitor used, + external uterine monitor used (none) and + category II (145/mod/+acce/4 variables noted over 90 min) Results & Data ([facility]) Vital Signs (Past 12 Hours) Vital Signs Temp Pulse Resp BP 07/11/21 11:42 97.9 F 20 07/11/21 11:30 60 136/76 07/11/21 11:29 97.9 F 20 PG Care Time/CCT Total # of Minutes Spent Total Time Spent with Patient: Total time spent is greater than 50% in coordination of care (as documented) at patient's floor/unit and/or counseling patient: Coding Level of Care Code None Diagnoses Gastroschisis of fetus in an , antepartum O35.8XX0
[2021-07-11] MEDS ORDERED: BETAMETH SOD PHOS/ACETATE IA 6 MG/ML IM STA (16:09)
--- NOTE | 2021-07-11 16:37 | Obstetrical Progress Note ---
Date of Service July 11, 2021 Assessment & Plan (1) Gastroschisis of fetus in an , antepartum: Plan: NST did improve when patient noted increased movement. When discussed case with [facility], they agreed with plan for continuous monitoring out of concern for worsening status or if able to get good tracing for a number of hours, repeat NST tomorrow. They also recommended initiating BMZ due to risk of needing delivery. They would be willing to accept as transfer at any point if concern for status given resources available for gastroschisis here. Discussed this with the patient and her in detail. As pt did start feeling movement and subsequently had improvement in NST during it, I think ok to continue monitoring here. Will initiate BMZ course and determine plan of acting pending more monitoring Subjective Late entry due to care. Pt's case was reviewed with MFM Dr. Potter at [facility] as pt's delivery plan is there. Met with patient to discuss, at this time pt notes that she has also started to feel movement more Physical Exam Genitourinary: OB Exam Monitor Tracing: + external FHT monitor used, + external uterine monitor used (none) and + category II (150/mod/+acce/few intermittent variables) Results & Data ([facility]) Vital Signs (Past 12 Hours) Vital Signs Temp Pulse Resp BP 07/11/21 15:41 67 139/65 07/11/21 11:42 97.9 F 20 07/11/21 11:30 60 136/76 07/11/21 11:29 97.9 F 20 PG Care Time/CCT Total # of Minutes Spent Total Time Spent with Patient: Total time spent is greater than 50% in coordination of care (as documented) at patient's floor/unit and/or counseling patient: Coding Level of Care Code None Diagnoses Gastroschisis of fetus in an , antepartum O35.8XX0
--- NOTE | 2021-07-11 18:13 | History & Physical Report ---
Date of Service July 11, 2021 Assessment & Plan (1) Gastroschisis of fetus in an , antepartum: Plan: 31 y/o at 32 4/7 wga admitted for prolonged monitoring VSS Fetus cat 1-2 Plan to monitor overnight while steroid course initiated. Plan reviewed in detail w/ pt, verbalized understanding. Peds team made aware as well History of Present Illness Chief Complaint: Prolonged monitoring Primary Care Provider: Diane Yoder, DO 31 y/o at 32 4/7 wga w/ RAI 09/01 presents from office due to variables on NST, subsequent BPP 05/18. Due to variables in the setting of Fetus with known gastroschisis with plan to deliver at [place], presented for further monitoring on L&D. +FM; denies regular ctx, LOF, VB. NST did improve when patient noted increased movement. When discussed case with [facility], they agreed with plan for continuous monitoring out of concern for worsening status or if able to get good tracing for a number of hours, repeat NST tomorrow. They also recommended initiating BMZ due to risk of needing delivery. They would be willing to accept as transfer at any point if concern for status given resources available for gastroschisis here. Discussed this with the patient and her in detail. As pt did start feeling movement and subsequently had improvement in NST during it, I think ok to continue monitoring here. Betamethasone was initiated. With further monitoring, fetus continued to have cat 1-2 tracing, so recommended monitoring overnight until steroid course is complete. PNI: Gastroschisis - planned delivery at [place] Past [employer] Hx: G1 2016 40 wks G2 2019 41 wks G3 current Menarche 16, q28-30d 01/2019 pap wnl Denies hx STIs Allergies Allergy/AdvReac Type Severity Reaction Status Date / Time codeine AdvReac Severe VOMITING Verified 07/08/21 09:11 Home Medications Medication Instructions Recorded Confirmed Type prenat.vits,abida,ulz-[id number]-jatxh 1 tab PO DAILY 01/13/21 07/11/21 History docusate sodium 100 mg capsule 100 mg PO 3XWK PRN 07/11/21 07/11/21 History (Colace) Patient History Medical History Anxiety Heart murmur Varicella vaccination Surgical History History of colposcopy with cervical biopsy S/P tonsillectomy S/P wisdom tooth extraction Family History Grandfather (Paternal) Heart disease Thyroid disease Mother Hypertension Central hypothyroidism Father Hypertension Grandmother (Maternal) Breast cancer Denies family history of Ovarian cancer Prostate cancer Lung cancer Colorectal cancer Social History Smoking Status: Never smoker Hx Alcohol Use: No Hx Substance Use: No Preferred Language: Welsh Communication Ability: Effective Visual Impairment: No Limitations Hearing Ability: Normal Manager [employer] Required: No Beliefs That Will Affect Care: None marital status: marital status details: Ozzy Gonzales (34) [phone] Current Living Situation: Spouse Current Living Situation Comment: spouse,2 sons and step son. 1 dog current occupational status: previously employed current occupation: homemaker Feels Safe at Home: Yes Safety Concerns: Feels Safe At This Time Childhood Exposure to Second-Hand Smoke: No caffeine: Yes (coffee) Dental Care, Regularly: Yes Physical Activity Frequency: 3-4 Times per Week Physical Activity Frequency Comment: walking Seatbelt Use: always Sunscreen Use: Yes Assistive Devices: None Physical Exam Genitourinary: OB Exam Monitor Tracing: + external FHT monitor used, + external uterine monitor used (none) and + category II (145/mod/+acce/few intermittent variables) Results & Data ([facility]) Vital Signs (Past 12 Hours) Vital Signs Temp Pulse Resp BP 07/11/21 15:41 67 139/65 07/11/21 11:42 97.9 F 20 07/11/21 11:30 60 136/76 07/11/21 11:29 97.9 F 20 Laboratory Results OB Labs: Blood Type O Positive 01/24/21 Antibody Screen NEGATIVE 01/24/21 Hemoglobin 12.2 g/dL (12.0-16.0) 06/13/21 Hematocrit 36.4 % (37-47) L 06/13/21 Mean Corpuscular Volume 90.8 fL (80-100) 01/24/21 Platelet Count 268 K/uL (130-400) 01/24/21 Rubella IgG Antibody Immune (Immune) 01/24/21 Rapid Plasma Reagin Nonreactive (Nonreactive) 01/24/21 Hepatitis B Surface Antigen Neg (Neg) 01/24/21 HIV (1&2) Ab and P24 Ag, 4th Gener Neg (Neg) 01/24/21 Glucose 1 Hour 50 gm Load 73 mg/dl (70-130) 06/13/21 Maternal Serum Alpha Fetoprotein 490.4 ng/mL 03/21/21 OB Optional Labs: Chlamydia trachomatis RNA NOT DETECTED (NOT DETECTED) 01/24/21 Neisseria gonorrhoeae RNA NOT DETECTED (NOT DETECTED) 01/24/21 Alpha Fetoprotein Triple Screen SEE NOTE 03/21/21 Labs Reviewed: low risk panorama elevated afp Diagnostic Findings posterior plac Coding Level of Care Code None Diagnoses Gastroschisis of fetus in an , antepartum O35.8XX0
--- NOTE | 2021-07-12 08:27 | Obstetrical Progress Note ---
Date of Service July 12, 2021 Assessment & Plan (1) Gastroschisis of fetus in an , antepartum: Plan: 31 y/o at 32 5/7 wga admitted for prolonged monitoring VSS Fetus cat 1-2, strip has improved overnight with more consistent moderate varia bility, fewer periods of minimal variability. Only occasional decel appropriate for GA now, however only getting rare accels. Overall, would consider tracing more reassuring than yesterday. Steroid course was started around 430pm yesterday, plan for second dose today. Given lack of accels still, plan for BPP for further reassurance. Discussed with pt that oncoming provider and myself would prefer to keep her monitored until second shot today after reviewing case, pt lives 5 min away and would prefer to go home before shot if possible pending BPP. Will see how result is, if remains reassuring throughout the day and later, would consider repeat testing tomorrow as well Subjective No acute events overnight. Pt noting movement when awake overnight and today, better than yesterday. Denies ctx, LOF, VB Physical Exam Genitourinary: OB Exam Monitor Tracing: + external FHT monitor used, + external uterine monitor used (none) and + category II (135/mod/occasional accel but not reactive, intermittent variables (less)) Results & Data ([facility]) Vital Signs (Past 12 Hours) Vital Signs Temp Pulse Resp BP 07/12/21 08:00 20 07/12/21 07:04 80 139/80 07/12/21 03:30 97.5 F L 18 07/12/21 03:04 77 134/63 PG Care Time/CCT Total # of Minutes Spent Total Time Spent with Patient: Total time spent is greater than 50% in coordination of care (as documented) at patient's floor/unit and/or counseling patient: Coding Level of Care Code None Diagnoses Gastroschisis of fetus in an , antepartum O35.8XX0
--- NOTE | 2021-07-12 11:41 | Ultrasound Report ---
US OB BPP w NST single INDICATION: MN ^Y ^Non reactive NST, gastroschisis Technique: Multiple real-time sonographic images were obtained. Findings: A single intrauterine is identified. The fetus is in breech presentation. Known gastroschisis is seen. Heart rate is 141 bpm. Amniotic flu id index is 13.84 cm, amniotic debris is noted. Biophysical profile is 8 of 8. Impression: Single live intrauterine . Biophysical profile is 8 out of 8. Breech presentatio n. ACT 112: Negative or not required by law. Electronically signed by: Abdullahi Castellon M.D. 07/12/2021 11:40 AM
--- NOTE | 2021-07-12 13:12 | Communication Note ---
Date of Service: July 12, 2021 BPP this morning is 8/8 no variables since this morning FHT's now meet reactive criteria patient also notes better movement now as well
[2021-07-12] MEDS ORDERED: BETAMETH SOD PHOS/ACETATE IA 6 MG/ML IM SCH (16:15)
== END 2021-07-12 16:30 | disposition home or self-care (01) ==
LOC: OPB 11:26 → 4S1 11:26 → OPB 07-12 16:30 → 4S1 07-14 21:10